=== PATIENT | male | born 1960 | race Caucasian/White ===

== ENCOUNTER 2023-06-07 05:34 | Inpatient (IN) | payer BC ==
[~2023-06-07] VITALS: Ht 177.8 cm; Wt 84.4 kg
[2023-06-07 05:36] VITALS: O2SAT 98
[2023-06-07] MEDS: ONDANSETRON HCL 4MG/2ML INJ IV ONE (06:35)
[2023-06-07] MEDS: NALOXONE HCL 1MG/ML 2ML VIAL IV ONE (06:35)
[2023-06-07 06:52] LABS: HEMATOCRIT. 29.6 % (42.0-52.0); HEMOGLOBIN. 9.8 g/dL (14.0-18.0); MEAN CORPUSCULAR HEMOGLOBIN 31.7 pg (28.0-32.0); MEAN CORPUSCULAR HGB CONC 33.1 g/dL (31.0-37.0); MEAN CORPUSCULAR VOLUME 95.7 fL (80.0-94.0); MEAN PLATELET VOLUME 9.1 fl (7.4-10.4); PLATELET 199 x1000/uL (130-400); RED BLOOD CELL COUNT 3.09 mill/uL (4.7-6.1); RED CELL DISTRIBUTION WIDTH 14.4 % (11.6-14.6); WHITE BLOOD COUNT 11.9 x1000/uL (4.5-11.0)
[2023-06-07 06:57] LABS: ALANINE AMINOTRANSFERASE 47 IU/L (10-49); ALBUMIN 4.9 g/dL (3.2-4.8); ASPARTATE AMINOTRANSFERASE 58 IU/L (<34); BILIRUBIN TOTAL 0.3 mg/dL (0.1-1.0); CALCIUM 9.5 mg/dL (8.7-10.4); CARBON DIOXIDE 20 mEq/L (21-32); CHLORIDE 110 mEq/L (98-107); CREATININE 2.6 mg/dL (0.6-1.3); GLUCOSE 102 mg/dL (70-105); POTASSIUM 5.4 mEq/L (3.5-5.1); PROTEIN TOTAL 7.9 g/dL (6.0-8.3); SODIUM 141 mEq/L (136-145); UREA NITROGEN BLOOD 24 mg/dL (9-23)
[2023-06-07 07:13] LABS: DIFFERENTIAL COMMENT 1
[2023-06-07] MEDS: BUPRENORPHINE 8MG SL TABLET SL ONE (07:29)
[2023-06-07 10:05] LABS: CREATINE KINASE 1673 IU/L (46-171); CREATINE KINASE MB FRACTION 19.7 ng/mL (0.5-3.6); ETHANOL BLOOD < 10 mg/dL (<10); IRON 70 ug/dL (65-175); T4 FREE 0.97 ng/dL (0.89-1.76); THYROID STIMULATING HORMONE 0.89 uIU/mL (0.55-4.78); TOTAL IRON BINDING CAPACITY 243 ug/dl (250-425)
[2023-06-07 10:23] VITALS: BP 119/57; PULSE 75; RESP 22; TEMP 97.9
[2023-06-07 10:36] VITALS: BP 119/57; PULSE 75; RESP 22; TEMP 97.9
[2023-06-07 11:45] LABS: PLATELET ESTIMATE NORMAL
[2023-06-07] MEDS ORDERED: DOCUSATE SODIUM 100MG CAPSULE PO PRN (12:30)
[2023-06-07] MEDS ORDERED: GUAIFENESIN 200MG/10ML SUGAR FREE UDC PO PRN (12:30)
[2023-06-07] MEDS ORDERED: CLONIDINE 0.1MG TABLET PO PRN (12:30)
[2023-06-07] MEDS ORDERED: ACETAMINOPHEN 325MG TABLET PO PRN (12:30)
[2023-06-07] MEDS ORDERED: NA PHOS,M-B/NA PHOS,DI-BA ENEMA 118ML PR PRN (12:30)
[2023-06-07] MEDS ORDERED: MAGNESIUM/ALUMINUM HYDROXIDE/SIMETHICONE 30ML UDC PO PRN (12:30)
[2023-06-07] MEDS ORDERED: IPRATROPIUM/ALBUTEROL 0.5-3(2.5)MG/3ML NEB HHN PRN (12:30)
[2023-06-07] MEDS ORDERED: ONDANSETRON HCL 4MG/2ML INJ IV PRN (12:30)
[2023-06-07] MEDS ORDERED: LORAZEPAM 2MG/ML INJ IV PRN ×2 (12:30→14:30)
[2023-06-07] MEDS ORDERED: ACETAMINOPHEN 650MG/20.3ML UDC GT PRN (12:30)
[2023-06-07] MEDS: PREGABALIN 25MG CAPSULE PO SCH (13:08)
[2023-06-07] MEDS: SODIUM CHLORIDE 0.45% 1,000 ML IV SCH (13:10)
[2023-06-07] MEDS ORDERED: METHADONE HCL 5MG TABLET PO PRN (14:30)
[2023-06-07] MEDS ORDERED: METHADONE HCL 10MG TABLET PO NR ×2 (15:00)
[2023-06-07 16:00] VITALS: BP 119/57; PULSE 86; RESP 17; TEMP 99.2
[2023-06-07 17:03] LABS: VITAMIN B12 SERUM 300 pg/mL (211-911)
[2023-06-07] MEDS: POLYVINYL ALCOHOL OPHTH DROPS 15ML EACHEYE PRN (18:36)
[2023-06-07] MEDS ORDERED: LEVETIRACETAM 500MG TABLET PO SCH (21:00)
== END 2023-06-07 19:30 | disposition left against medical advice (07) | DRG 894 ==
LOC: ER 05:34 → 7WST 08:06
PROVIDERS: ADMIT Internal Medicine; ATTEND Internal Medicine
DX: F13.939 Sedative, hypnotic or anxiolytic use, unspecified with withdrawal, unspecified (principal); N17.0 Acute kidney failure with tubular necrosis; M62.82 Rhabdomyolysis; F11.13 Opioid abuse with withdrawal; R56.9 Unspecified convulsions; M79.605 Pain in left leg; R53.1 Weakness; G62.9 Polyneuropathy, unspecified; D53.9 Nutritional anemia, unspecified; Z53.29 Procedure and treatment not carried out because of patient's decision for other reasons; G89.29 Other chronic pain; M54.30 Sciatica, unspecified side; F31.9 Bipolar disorder, unspecified; F20.9 Schizophrenia, unspecified; Z53.20 Procedure and treatment not carried out because of patient's decision for unspecified reasons; Z88.2 Allergy status to sulfonamides; Z88.0 Allergy status to penicillin
CPT/HCPCS: 80053; 80320; 82550; 82553; 82607; 82746; 83540; 83550; 83605; 84439; 84443; 85025; 99285; J2310; J2405; G0480